=== PATIENT | male | born 1985 | race Caucasian/White ===

== ENCOUNTER 2016-11-21 05:05 | Inpatient (IN) ==
[2016-11-21] MEDS ORDERED: DILAUDID IV ONE (05:32)
[2016-11-21] MEDS ORDERED: ZOFRAN IV ONE (05:32)
[2016-11-21] MEDS ORDERED: TORADOL IV ONE (05:32)
[2016-11-21] MEDS ORDERED: NS 500 ML IV ONE (05:32)
--- NOTE | 2016-11-21 05:44 | PROVIDER DOCUMENTATION ---
HPI-Abdominal Pain/GI Problem - General Chief Complaint: Abdominal Pain Stated Complaint: ABD PAIN Time Seen by Provider: 11/21/16 05:31 Source: patient Allergies/Adverse Reactions: Patient Allergies Allergy/AdvReac Type Severity Reaction Status Date / Time cefaclor [From [facility]] Allergy Mild RASH Verified 12/21/13 14:51 Home Medications: Home Medication List Medication Instructions Recorded Confirmed Last Taken Type Oxcarbazepine [Trileptal] 300 mg PO BID 11/21/16 11/21/16 Unknown History - History of Present Illness-ABD Nature of Presenting Problems: pt woke up around 0330 today with RUQ pain that radiates to his back that is moderately severe and constant and achy. He has vomited once.He has had an U/S in 2011 showing gallstones and has not had surgery for it. This feels like when he has had GB problems in the past No fevers. Review of Systems - Adult - REVIEW OF SYSTEMS - ADULT Constitutional: denies: chills, fever Eyes: denies: discharge Ears, Nose, Mouth & Throat: denies: ear pain, sinus problem, throat pain Cardiovascular: denies: chest pain Respiratory: denies: cough, shortness of breath Gastrointestinal: reports: see HPI. denies: diarrhea Genitourinary: denies: dysuria, flank pain Musculoskeletal: reports: see HPI Integumentary: denies: rash Neurological: denies: headache/migraines, numbness, paresthesia Psychiatric: reports: no symptoms reported Endocrine: reports: no symptoms reported Hematologic/Lymphatic: reports: no symptoms reported Allergic/Immunologic: reports: no symptoms reported All Other Systems: Reviewed and Negative Past History - Adult - PAST MEDICAL HISTORY-ADULT Review of Records: reports: Old Records Reviewed, Nursing Assessment Review, Medications Reviewed, Social history reviewed & non-contributory. Physical Exam-General - PHYSICAL EXAM-ADULT Initial Vital Signs Reviewed: Yes - CONSTITUTIONAL General Appearance: appears well, alert, mild distress (from) - EYES Eyes: negative: scleral icterus - HEAD, EARS, NOSE, MOUTH & THROAT HENMT: normocephalic/atraumatic, pharynx normal - NECK Neck: non-tender, full range of motion, supple, normal inspection - RESPIRATORY Respiratory: chest non-tender, lungs clear, normal breath sounds, no pleuratic chest pain, no respiratory distress, no accessory muscle use - CARDIOVASCULAR Cardiovascular: regular rate, rhythm, no edema, no murmur - GASTROINTESTINAL (ABDOMEN) Abdominal Exam: normal bowel sounds, soft, no organomegaly, no pulsatile mass, tenderness (mod RUQ), Ferrell's sign. negative: non tender, abdominal bruit, hernia, mass, hepatomegaly, spleenomegaly, McBurney's point tenderness - MUSCULOSKELETAL Back Exam: normal inspection, no CVA tenderness, no vertebral tenderness - SKIN Integumentary: normal color, normal turgor, warm/dry - NEUROLOGIC Neurologic: environmental compliance inspector II-XII nml as tested, grossly normal, no motor/sensory deficits - PSYCHIATRIC Psych/Mental Status: normal mood/affect, normal thought content, normal thought process, oriented x 3 Progress - PLAN OF CARE/RESULTS Progress/Plan/Lab Results: Vital Signs - 8 hr 11/21/16 05:15 Temperature 98.2 F Pulse Rate 71 Respiratory Rate 18 Blood Pressure 142/98 O2 Sat by Pulse Oximetry 100 Orders Category Date Time Status CBC WITH ELECTRONIC DIFF [HEME] Stat Lab 11/21/16 05:31 Ordered CMP [COMPREHENSIVE METABOLIC PANEL] [CHEM] Stat Lab 11/21/16 05:31 Ordered LIPASE [CHEM] Stat Lab 11/21/16 05:31 Ordered 0.9% Sodium Chloride Inj [Ns] 500 ml Med 11/21/16 05:32 Active IV 999 mls/hr Hydromorphone [Dilaudid] Med 11/21/16 05:32 Discontinued 1 mg IV NOW ONE Ketorolac [Toradol] Med 11/21/16 05:32 Discontinued 30 mg IV NOW ONE Ondansetron [Zofran] Med 11/21/16 05:32 Discontinued 4 mg IV NOW ONE Result Diagrams: 11/21/16 05:45 11/21/16 05:45 - CONSULTS/PCP/HOSPITALIST Notification #1 *Consult/PCP/Hospitalist*: Dr. Garcia Time Discussed: 10:50 (Dr. Garcia states send Pt to [facility] ) Reason/Comments: consulted with Dr. Garcia about Pt. Consult Disposition: other Departure - Departure Time of Disposition Decision: 10:51 (transfer to [facility] for sx) DIAGNOSIS: Gall stones Disposition: ADMITTED INPATIENT 09 Certified Medical Emergency: Emergent Condition: Stable Referrals and Follow-Ups: None,PCP [Primary Care Provider] - - Critical Care Note This patient required my direct & personal management of CC.: No
[2016-11-21 05:50] LABS: MANUAL DIFF NEEDED? NO
[2016-11-21 05:51] LABS: BASO% 0.4 % (0.0-0.8); EOS# 0.18 X1000 (0.0-0.7); EOS% 2.7 % (0.0-10.0); HEMATOCRIT 43.9 % (42.0-52.0); HEMOGLOBIN 15.7 g/dL (14.0-18.0); IMM GRAN# 0.01 X1000 (0.0-0.04); IMM GRAN% 0.1 % (0.0-0.5); LYMPH% 22.4 % (20.5-51.1); MCH 31.3 PG (27-31); MCHC 35.8 g/dL (33-37); MCV 87.5 FL (81-99); MONO# 0.88 X1000 (0.11-0.59); MONO% 13.1 % (1.7-9.3); MPV 9.9 FL (7.4-10.4); NEUT% 61.3 % (42.2-75.2); PLT 207 X1000 (130-400); RBC 5.02 XMIL (4.7-6.1)
[2016-11-21 06:16] LABS: URINE MICROSCOPIC NEEDED? NO; URINE SOURCE CLEAN CATCH
[2016-11-21 06:27] LABS: AGAP 12; ALBUMIN 3.9 g/dL (3.5-5.0); ALKALINE PHOSPHATASE 77 U/L (32-122); BUN 15 mg/dL (8-22); CALCIUM 8.8 mg/dL (8.8-10.2); CHLORIDE 103 mmol/L (98-107); COSMO 282; GOT 19 U/L (10-34); GPT 30 U/L (10-44); LIPASE 35 U/L (13-60); SODIUM 140 mmol/L (136-145); TCO2 25 mmol/L (25-35)
[2016-11-21 06:32] LABS: BILIRUBIN URINE NEGATIVE (NEGATIVE); BLOOD URINE NEGATIVE (NEGATIVE); CLARITY CLEAR (CLEAR); COLOR YELLOW; GLUCOSE URINE NEGATIVE (NEGATIVE); LEUKOCYTES URINE NEGATIVE (NEGATIVE); NITRITE URINE NEGATIVE (NEGATIVE); PH URINE 6.5; PROTEIN URINE NEGATIVE (NEGATIVE); UROBILINOGEN URINE 3+(8 mg/dL)
--- NOTE | 2016-11-21 08:35 | Diag Imaging Result Doc PS360 ---
US GB < RUQ (LIMITED) - 11/21/2016 INDICATION: pain TECHNIQUE: COMPARISON: 03/12/2012 FINDINGS: There is a large shadowing stone at the gallbladder neck stable from the prior exam. This measures over 2 cm. The gallbladder is somewhat distended. The gallbladder measures about 10 x 4 cm. No significant wall thickening or surrounding free fluid. Common bile duct measures 3 mm. The liver, pancreas, and right kidney are normal. No free fluid. IMPRESSION: Large gallstone at the gallbladder neck with mild distention of the gallbladder, nonspecific. Early acute cholecystitis cannot be excluded. Correlate clinically. A HIDA scan may be useful for further evaluation. Electronically signed by Presley Berman 11/21/2016 8:33 AM
[2016-11-21] MEDS ORDERED: NUBAIN IM ONE (09:42)
[2016-11-21] MEDS ORDERED: NUBAIN IV ONE (09:43)
[2016-11-21] MEDS ORDERED: NS 1,000 ML IV ONE (10:52)
[2016-11-21] MEDS ORDERED: MARCAINE 0.25% PF/EPI 1:200,000 ONE (14:17)
[2016-11-21] MEDS ORDERED: LR 1,000 ML ONE (14:18)
[2016-11-21] MEDS ORDERED: SODIUM CHLORIDE 0.9% ONE (14:44)
--- NOTE | 2016-11-21 15:19 | Diag Imaging Result Doc PS360 ---
OPERATIVE CHOLANGIOGRAM - 11/21/2016 INDICATION: CHOLECYSTITIS TECHNIQUE: The exam was performed by the patient's surgeon. One image was obtained. COMPARISON: None FINDINGS: Contrast was infused into the cystic duct. This outlines normal hepatic collecting ducts and a normal common bile duct. There is passage of contrast into the duodenum. IMPRESSION: No evidence of complication. Electronically signed by Presley Berman 11/21/2016 3:17 PM
[2016-11-21] MEDS ORDERED: NORCO-10 PO PRN (15:28)
[2016-11-21] MEDS ORDERED: ZOFRAN IV PRN (15:28)
--- NOTE | 2016-11-21 15:51 | OPERATIVE NOTE ---
PROCEDURE DATE: 11/21/2016 PROCEDURE PERFORMED: Laparoscopic cholecystectomy with operative cholangiogram. SURGEON: Patrick Garcia MD. DIRECTOR CLIENT SERVICES: Lnyn Payne. PREOPERATIVE DIAGNOSIS: Acute calculous cholecystitis. POSTOPERATIVE DIAGNOSIS: Acute calculous cholecystitis. FINDINGS: The cholangiogram revealed a normal size common duct, free flow in the duodenum. No intraluminal filling defects were seen. DESCRIPTION OF PROCEDURE: After satisfactory general endotracheal anesthesia achieved, the abdomen is prepped and draped in a sterile fashion. We anesthetized the skin below the umbilicus, incised the skin, and carried our incision down to the fascia. We scored the fascia and introduced an 11 trocar into the abdominal cavity. We insufflated through this trocar. Under direct visualization, placed a 5 trocar in the midclavicular line, 5 trocar near the anterior axillary line, and an 11 mm trocar in the midepigastrium. We placed the patient in reverse Trendelenburg and turned him to the left. We grasped the fundus of the gallbladder, reflected it cephalad, and began dissection of the triangle of Calot. We identified the cystic artery and cystic duct. We clipped the cystic artery proximally x2, distally x1, and divided it. We clipped the cystic duct, incised the cystic duct, and introduced a Pepper catheter. We shot the cholangiogram and the findings above were noted. We removed the cholangiogram catheter, clipped the cystic duct on the opposite side of cystic ductotomy x2, and transected it. We then used the cautery spatula to dissect the gallbladder away from the liver. After complete separation of the gallbladder from the liver, we changed the videolaparoscope to the mid epigastric trocar. We introduced a claw forceps through the umbilical trocar. We grasped the infundibulum. We delivered the gallbladder out of the abdominal cavity. We had to enlarge the fascial incision somewhat to deliver the gallbladder en toto. We looked back and hemostasis was satisfactory. We then desufflated and removed our trocars. We closed the fascia at the umbilicus with 2-0 Polysorb fascial stitch x2, and simple or single fascial stitch in the epigastrium. We closed the skin at each incision with 4-0 Polysorb subcuticular stitches. Sterile OpSites were applied. He tolerated it well and was sent to the recovery room in satisfactory condition. cc: Patrick Garcia MD
[2016-11-21] MEDS ORDERED: FENTANYL ONE (15:53)
[2016-11-21] MEDS ORDERED: DIPRIVAN 1% ONE (15:53)
[2016-11-21] MEDS ORDERED: VERSED ONE (15:53)
[2016-11-21] MEDS ORDERED: ZOFRAN ONE (16:02)
[2016-11-21] MEDS ORDERED: XYLOCAINE-MPF 2% ONE (16:02)
[2016-11-21] MEDS ORDERED: ROBINUL ONE (16:02)
[2016-11-21] MEDS ORDERED: NEOSTIGMINE ONE (16:02)
[2016-11-21] MEDS ORDERED: ZEMURON ONE (16:02)
[2016-11-21] MEDS ORDERED: LR 2,000 ML ONE (16:02)
[2016-11-21] MEDS ORDERED: QUELICIN (DOSE) ONE (16:02)
[2016-11-21] MEDS: NS 1,000 ML IV SCH (16:43)
[2016-11-22] MEDS: BUPRENEX IV PRN ×2 (00:07→04:58)
[2016-11-22] MEDS: NS 1,000 ML IV SCH (03:30)
[2016-11-22 08:46] VITALS: BP 120/87
[2016-11-22] MEDS ORDERED: PERIDEX MT SCH (09:00)
== END 2016-11-22 09:38 | disposition home or self-care (01) ==
LOC: P.ED 05:05 → 4N 11:57
PROVIDERS: ADMIT Surgery; ATTEND Surgery